=== PATIENT | female | born 1945 | race Two or more races ===

== ENCOUNTER 2022-06-04 10:57 | Emergency (ER) | payer OTHER, MEDICAID ==
[~2022-06-04] VITALS: Ht 162.6 cm; Wt 75.0 kg
[2022-06-04 11:35] LABS: Basophils # (auto) 0.1 10 ^3/uL (0-0.2); Basophils % (auto) 0.5 % (0.0-2.0); Eosinophils # (auto) 0.6 10 ^3/uL (0-0.8); Eosinophils % (auto) 5.6 % (0.0-7.0); Hemoglobin 13.1 g/dL (12.2-16.2); Lymphocytes # (auto) 2.1 10 ^3/uL (0.4-5.4); Lymphocytes % (auto) 19.7 % (10.0-50.0); Mean Corpuscular Hemoglobin 25.7 pg (28.0-32.0); Mean Corpuscular Volume 80.3 fL (80.0-100.0); Monocytes # (auto) 0.8 10 ^3/uL (0-1.3); Neutrophils # (auto) 7.2 10 ^3/uL (1.6-8.6); Neutrophils % (auto) 67.2 % (37.0-80.0); Red Blood Cells 5.11 10^6/uL (4.0-5.20); Red Cell Distribution Width 13.5 % (11.8-14.3); White Blood Cell 10.8 10^3/uL (4.4-10.8)
[2022-06-04 12:01] LABS: Albumin 3.2 g/dL (3.4-5.0); Calcium 9.3 mg/dL (8.5-10.1); Potassium 3.5 mmol/L (3.5-5.1)
[2022-06-04 12:04] LABS: BUN/Creatinine Ratio 16.1; Bilirubin, Total 0.3 mg/dL (0.2-1.0); Total Protein 7.1 g/dL (6.4-8.2)
[2022-06-04] MEDS ORDERED: DexAMETHasone SOD PHOS 10MG/1ML VIAL INJ IV ONE (17:15)
[2022-06-04 18:07] LABS: Urine Bacteria FEW /hpf (None Seen); Urine Blood Negative /uL (Negative); Urine Specific Gravity 1.029 (1.001-1.035); Urine WBC 5 /hpf (0 - 5)
[2022-06-04] MEDS ORDERED: CYCL-837 PO (18:36)
[2022-06-04] MEDS ORDERED: DEX4T PO (18:36)
[2022-06-04] MEDS ORDERED: TRAM50TA2 PO (18:36)
[2022-06-04] MEDS ORDERED: INSULIN LISPRO (HUMAN) 100 UNITS/ML ML SC ONE (18:45)
[2022-06-04 20:13] VITALS: BP 131/68
== END 2022-06-04 21:01 | disposition home or self-care (01) ==
LOC: EDBD 10:57 → ER 10:57
DX: M47.22 Other spondylosis with radiculopathy, cervical region (principal); G44.209 Tension-type headache, unspecified, not intractable; R07.89 Other chest pain; E11.65 Type 2 diabetes mellitus with hyperglycemia; E44.1 Mild protein-calorie malnutrition; Z68.28 Body mass index [BMI] 28.0-28.9, adult
CPT/HCPCS: 36415; 70450; 71045; 72125; 80053; 81001; 82962; 84484; 85025; 93005; 96372; 96374; 99285; J1100; J1815

== ENCOUNTER 2023-09-15 09:37 | Inpatient (IN) | payer OTHER ==
[~2023-09-15] VITALS: Ht 152.4 cm; Wt 52.4 kg
[~2023-09-15 09:37] MED LIST: CYCL-837 PO; DEX4T PO; TRAM50TA2 PO
[2023-09-15] MEDS: SODIUM CHLORIDE 0.9% 500 ML IV ONE (10:00)
[2023-09-15] MEDS: ASPirin-EC 325mg tab PO ONE (10:08)
[2023-09-15 10:11] LABS: Hematocrit 37.9 % (36.0-46.0); Hemoglobin 11.9 g/dL (12.2-16.2); Mean Corpuscular Hemoglobin 24.7 pg (28.0-32.0); Mean Corpuscular Hgb Conc. 31.4 g/dL (32.0-36.0); Mean Corpuscular Volume 78.9 fL (80.0-100.0)
[2023-09-15 10:17] LABS: White Blood Cell 39.6 10^3/uL (4.4-10.8)
[2023-09-15 10:20] LABS: Basophils % (manual) 0 (0.0-2.0); Blast Cells 0; Eosinophils % (manual) 0 (0-7); Myelocytes % 0; Promyelocytes % 0; Reactive Lymphocytes 0
[2023-09-15 10:25] LABS: Base Excess 0.3 mmol/L (-2.0-2.0)
[2023-09-15 10:27] LABS: INR 1.15 (0.9-1.15)
[2023-09-15 10:32] LABS: Alanine Aminotransferase 17 U/L (7-40); Albumin 2.9 g/dL (3.2-4.8); Alkaline Phosphatase 105 U/L (46-116); Anion Gap 8 (5-15); Aspartate Aminotransferase 19 U/L (13-40); Blood Urea Nitrogen 18 mg/dL (9-23); Calcium 8.1 mg/dL (8.7-10.4); Carbon Dioxide 24 mmol/L (20-30); Chloride 99 mmol/L (98-107); Lipase 18 U/L (12-53); Potassium 3.9 mmol/L (3.5-5.1); Sodium 131 mmol/L (136-145)
[2023-09-15 10:33] LABS: Bilirubin, Total 0.7 mg/dL (0.2-1.0)
[2023-09-15 10:47] LABS: Glucose 516 mg/dL (74-106)
[2023-09-15 11:00] VITALS: PULSE 76; RESP 12; O2SAT 93
[2023-09-15] MEDS: NITROGLYCERIN 2% OINT 1GM PKG TD ONE (11:07)
[2023-09-15] MEDS: SODIUM CHLORIDE 0.9% 1,950 ML IV ONE (12:00)
[2023-09-15 12:06] LABS: Band Neutrophils % (manual) 5; Lymphocytes % (manual) 3 (10.0-50.0); Metamyelocytes % 1; Monocytes % (manual) 1 (0-12); Toxic Granulation Slight
[2023-09-15 12:07] LABS: Platelet Estimate Adequate
[2023-09-15] MEDS: InsuLIN REG 1unit/0.01ml Soln (100units/ml) IV ONE (12:15)
[2023-09-15] MEDS ORDERED: ONDANSETRON HCL 4 MG/2 ML VIAL IV PRN (12:30)
[2023-09-15] MEDS ORDERED: NITROGLYCERIN 0.4 MG SL TAB SL PRN (12:30)
[2023-09-15] MEDS ORDERED: VANCOMYCIN PER PHARMACY 0 MG IV SCH (12:30)
[2023-09-15] MEDS ORDERED: MORPHINE SULFATE 4 MG/ML SYR/VIAL IV PRN (12:30)
[2023-09-15] MEDS ORDERED: PIPERACILLIN-TAZO 4.5GM 100 ML IV ONE (12:30)
[2023-09-15] MEDS ORDERED: CIPROFLOXACIN 400MG/200ML 200 ML IV ONE (12:30)
[2023-09-15] MEDS: IOHEXOL 350 MG/ML 100ML IJ ONE (12:34)
[2023-09-15] MEDS ORDERED: DEXTROSE (50%) 50ML SYRG IV PRN (12:45)
[2023-09-15] MEDS ORDERED: IPRATROPIUM BROM 0.5 MG/2.5ML INH SOL NEB PRN (12:45)
[2023-09-15] MEDS ORDERED: ALBUTEROL SULF 2.5 MG/0.5ML(0.5%) NEB SOLN NEB PRN (12:45)
[2023-09-15 13:09] LABS: Magnesium 1.4 mg/dL (1.6-2.6)
[2023-09-15 13:10] LABS: Phosphorus 3.1 mg/dL (2.4-5.1)
[2023-09-15 13:18] VITALS: BP 106/48; PULSE 76; RESP 20; O2SAT 92
[2023-09-15] MEDS: VANCOMYCIN 1GM/200ML 200 ML IV ONE (14:11)
[2023-09-15] MEDS: ENOXAPARIN SOD 100 MG/1 ML SYRINGE SC ONE (14:12)
[2023-09-15 14:37] LABS: Rapid Influenza A Negative (Negative); Rapid Influenza B Negative (Negative)
[2023-09-15 14:39] LABS: COVID19 ANTIGEN SOFIA FIA NEGATIVE (NEGATIVE)
[2023-09-15 15:04] LABS: Sodium Urine < 10 mmol/L (40-220)
[2023-09-15 15:11] LABS: Creatinine, Urine 58.22 mg/dL (30.0-125.0)
[2023-09-15] MEDS: CEFEPIME 2GM/50ML NS 50 ML IV SCH (15:12)
[2023-09-15 15:21] LABS: Urine Bacteria FEW /hpf (None Seen); Urine Blood Negative /uL (Negative); Urine Clarity Clear (Clear); Urine Color Yellow (Yellow); Urine Protein, UAD Negative (Negative); Urine Specific Gravity 1.044 (1.001-1.035); Urine Urobilinogen Normal (Negative); Urine WBC 2 /hpf (0 - 5)
[2023-09-15] MEDS: ACCU-CHEK COMFORT CURVE STRIP VI SCH (16:07)
[2023-09-15] MEDS: InsuLIN REG 1unit/0.01ml Soln (100units/ml) SC SCH (16:12)
[2023-09-15 18:32] VITALS: O2SAT 93
[2023-09-15 19:40] VITALS: PULSE 82; RESP 14; O2SAT 96
[2023-09-15] MEDS: SODIUM CHLORIDE 0.9% 1,000 ML IV SCH (20:00)
[2023-09-15] MEDS: ATORVASTATIN 20 MG TAB PO SCH (21:43)
[2023-09-15] MEDS: ACETAMINOPHEN 325 MG TAB PO PRN (21:43)
[2023-09-16] VITALS (10 sets, daily range): BP systolic 109–126; BP diastolic 45–63; PULSE 67–74; RESP 15–20; TEMP 97.8–98.4; O2SAT 92–100
[2023-09-16] MEDS ORDERED: AMLO1TAB22 PO (00:19)
[2023-09-16] MEDS ORDERED: TIRZ10IN SC (00:19)
[2023-09-16] MEDS ORDERED: ATOR20TA50 PO (00:19)
[2023-09-16] MEDS ORDERED: ENAL1TAB47 PO (00:19)
[2023-09-16] MEDS ORDERED: ASPI-325 PO (00:19)
[2023-09-16] MEDS ORDERED: MONT-8 PO (00:19)
[2023-09-16] MEDS ORDERED: IBUP1TAB5 PO (00:19)
[2023-09-16] MEDS ORDERED: AMOX875T4 PO (00:19)
[2023-09-16] MEDS ORDERED: CHOL500035 PO (00:19)
[2023-09-16 07:21] LABS: Basophils # (auto) 0.1 10 ^3/uL (0-0.2); Eosinophils # (auto) 0.1 10 ^3/uL (0-0.8); Lymphocytes # (auto) 2.7 10 ^3/uL (0.4-5.4); Monocytes # (auto) 1.5 10 ^3/uL (0-1.3)
[2023-09-16 07:25] LABS: Basophils % (auto) 0.4 % (0.0-2.0); Eosinophils % (auto) 0.4 % (0.0-7.0); Hematocrit 31.7 % (36.0-46.0); Lymphocytes % (auto) 11.9 % (10.0-50.0); Mean Corpuscular Hemoglobin 24.9 pg (28.0-32.0); Mean Corpuscular Hgb Conc. 31.6 g/dL (32.0-36.0); Mean Corpuscular Volume 78.8 fL (80.0-100.0); Monocytes % (auto) 6.5 % (0.0-12.0); Neutrophils # (auto) 18.7 10 ^3/uL (1.6-8.6); Neutrophils % (auto) 80.8 % (37.0-80.0); Red Blood Cells 4.02 10^6/uL (4.0-5.20); Red Cell Distribution Width 15.1 % (11.8-14.3); White Blood Cell 23.2 10^3/uL (4.4-10.8)
[2023-09-16 07:43] LABS: Alanine Aminotransferase 12 U/L (7-40); Alkaline Phosphatase 78 U/L (46-116); Calcium 7.8 mg/dL (8.5-10.1); Carbon Dioxide 21 mmol/L (20-30); Triglycerides 101 mg/dL (< 150)
[2023-09-16 07:44] LABS: Albumin 2.5 g/dL (3.2-4.8); Anion Gap 8 (5-15); Aspartate Aminotransferase 15 U/L (13-40); BUN/Creatinine Ratio 15.1 (10.0-20.0); Bilirubin, Total 0.3 mg/dL (0.2-1.0); Blood Urea Nitrogen 13 mg/dL (9-23); Cholesterol 100 mg/dL (< 200); Glucose 149 mg/dL (74-106); HDL Cholesterol 21 mg/dL (40-59); LDL Cholesterol 54 mg/dL (< 100); Potassium 2.6 mmol/L (3.5-5.1); Sodium 138 mmol/L (136-145); Total Protein 5.9 g/dL (5.7-8.2)
[2023-09-16 07:53] LABS: Chloride 109 mmol/L (98-107)
[2023-09-16] MEDS: DOCUSATE SOD 100 MG CAP PO SCH (09:43)
[2023-09-16] MEDS: POTASSIUM CHL 20 Meq TABLET PO ONE (09:43)
[2023-09-16] MEDS: ASPirin 81 mg TAB PO SCH (09:43)
[2023-09-16] MEDS: ENOXAPARIN SOD 40 MG/0.4 ML SYRINGE SC SCH (09:44)
[2023-09-16] MEDS: VANCOMYCIN 750mg/150ml 150 ML IV SCH (10:18)
[2023-09-16] MEDS: MAGNESIUM SULFATE 1GM/100ML 100 ML IV SCH (12:09)
[2023-09-16] MEDS: POTASSIUM CHL 20MEQ/100ML 100 ML IV SCH (12:28)
[2023-09-16 19:23] LABS: Potassium 3.1 mmol/L (3.5-5.1)
[2023-09-17] VITALS (8 sets, daily range): BP systolic 114–145; BP diastolic 41–61; PULSE 68–89; RESP 15–19; TEMP 97.5–98.4; O2SAT 94–98
[2023-09-17 10:13] LABS: Basophils # (auto) 0 10 ^3/uL (0-0.2); Lymphocytes # (auto) 1.6 10 ^3/uL (0.4-5.4); Mean Corpuscular Hgb Conc. 31.8 g/dL (32.0-36.0); Monocytes # (auto) 0.8 10 ^3/uL (0-1.3); Neutrophils # (auto) 10.3 10 ^3/uL (1.6-8.6); Red Cell Distribution Width 15.3 % (11.8-14.3); White Blood Cell 12.8 10^3/uL (4.4-10.8)
[2023-09-17 10:15] LABS: Basophils % (auto) 0.4 % (0.0-2.0); Eosinophils # (auto) 0 10 ^3/uL (0-0.8); Eosinophils % (auto) 0.3 % (0.0-7.0); Hematocrit 36.8 % (36.0-46.0); Hemoglobin 11.7 g/dL (12.2-16.2); Lymphocytes % (auto) 12.8 % (10.0-50.0); Mean Corpuscular Hemoglobin 25.5 pg (28.0-32.0); Mean Corpuscular Volume 80.1 fL (80.0-100.0); Monocytes % (auto) 5.9 % (0.0-12.0); Neutrophils % (auto) 80.6 % (37.0-80.0); Red Blood Cells 4.59 10^6/uL (4.0-5.20)
[2023-09-17 10:31] LABS: Chloride 111 mmol/L (98-107); Potassium 3.3 mmol/L (3.5-5.1); Sodium 139 mmol/L (136-145)
[2023-09-17 10:32] LABS: Anion Gap 12 (5-15); Carbon Dioxide 16 mmol/L (20-30)
[2023-09-17 10:37] LABS: BUN/Creatinine Ratio 9.7 (10.0-20.0); Blood Urea Nitrogen 7 mg/dL (9-23); Glucose 164 mg/dL (74-106)
[2023-09-17 10:38] LABS: Magnesium 1.9 mg/dL (1.6-2.6)
[2023-09-17] MEDS: NYSTATIN (MOUTH-THROAT) 500,000 UNITS/5 ML SUSP MT SCH (12:23)
[2023-09-17] MEDS: CEFTRIAXONE SODIUM 2 GM in D5W 5% 100 ML IV ONE (12:27)
[2023-09-17] MEDS: IOHEXOL 300 MG/ML 100ML BOTTLE IJ ONE (16:21)
[2023-09-17] MEDS: OMNIPAQUE 12mg/ml 500ml ORAL SOLUTION PO ONE (16:21)
[2023-09-17] MEDS: VANCOMYCIN 1GM/200ML 200 ML IV SCH (21:09)
[2023-09-17] MEDS: ALPRAZolam 0.25 MG TAB PO PRN (23:05)
[2023-09-18] VITALS (8 sets, daily range): BP systolic 129–146; BP diastolic 68–76; PULSE 66–78; RESP 14–20; TEMP 97.3–98.2; O2SAT 91–97
[2023-09-18 05:24] LABS: Basophils # (auto) 0.1 10 ^3/uL (0-0.2); Basophils % (auto) 0.7 % (0.0-2.0); Eosinophils # (auto) 0.1 10 ^3/uL (0-0.8); Eosinophils % (auto) 1.1 % (0.0-7.0); Hematocrit 31.9 % (36.0-46.0); Hemoglobin 10.5 g/dL (12.2-16.2); Lymphocytes # (auto) 2.5 10 ^3/uL (0.4-5.4); Lymphocytes % (auto) 26.3 % (10.0-50.0); Mean Corpuscular Hemoglobin 25.4 pg (28.0-32.0); Mean Corpuscular Hgb Conc. 32.8 g/dL (32.0-36.0); Mean Corpuscular Volume 77.5 fL (80.0-100.0); Monocytes # (auto) 0.8 10 ^3/uL (0-1.3); Monocytes % (auto) 8.9 % (0.0-12.0); Neutrophils # (auto) 5.9 10 ^3/uL (1.6-8.6); Nucleated Red Blood Cells % 0.1 %; Red Blood Cells 4.12 10^6/uL (4.0-5.20); Red Cell Distribution Width 15.1 % (11.8-14.3); White Blood Cell 9.4 10^3/uL (4.4-10.8)
[2023-09-18 05:32] LABS: Chloride 111 mmol/L (98-107); Potassium 3.1 mmol/L (3.5-5.1); Sodium 139 mmol/L (136-145)
[2023-09-18 05:33] LABS: Anion Gap 9 (5-15); Calcium 8.2 mg/dL (8.5-10.1); Carbon Dioxide 19 mmol/L (20-30)
[2023-09-18 05:38] LABS: Blood Urea Nitrogen 6 mg/dL (9-23); Glucose 134 mg/dL (74-106)
[2023-09-18 06:21] LABS: Free T4 (Free Thyroxine) 1.11 ng/dL (0.89-1.76)
[2023-09-18 06:22] LABS: Folate (Folic Acid) 13.86 ng/mL (>5.38)
[2023-09-18] MEDS: CEFTRIAXONE SODIUM 2 GM in D5W 5% 100 ML IV SCH (08:36)
[2023-09-18] MEDS: POTASSIUM CHL 20 Meq TABLET PO ONE (09:42)
[2023-09-18] MEDS: IOHEXOL 300 MG/ML 100ML BOTTLE IJ ONE (10:46)
[2023-09-18] MEDS: TEMAZEPAM 15 MG CAP PO PRN (21:43)
[2023-09-19] VITALS (8 sets, daily range): BP systolic 141–155; BP diastolic 62–74; PULSE 68–77; RESP 18–20; TEMP 97.7–98.6; O2SAT 96–100
[2023-09-19 09:12] LABS: Basophils # (auto) 0.1 10 ^3/uL (0-0.2); Eosinophils # (auto) 0.1 10 ^3/uL (0-0.8); Neutrophils # (auto) 5.3 10 ^3/uL (1.6-8.6)
[2023-09-19 09:15] LABS: Basophils % (auto) 1.1 % (0.0-2.0); Hemoglobin 12.3 g/dL (12.2-16.2); Lymphocytes % (auto) 24.2 % (10.0-50.0); Mean Corpuscular Hemoglobin 24.9 pg (28.0-32.0); Mean Corpuscular Hgb Conc. 30.8 g/dL (32.0-36.0); Monocytes # (auto) 0.9 10 ^3/uL (0-1.3); Monocytes % (auto) 10.2 % (0.0-12.0); Neutrophils % (auto) 63.5 % (37.0-80.0); Nucleated Red Blood Cells % 0.1 %; Red Blood Cells 4.93 10^6/uL (4.0-5.20); Red Cell Distribution Width 15.7 % (11.8-14.3); White Blood Cell 8.4 10^3/uL (4.4-10.8)
[2023-09-19 09:18] LABS: Anion Gap 8 (5-15); Calcium 8.4 mg/dL (8.7-10.4); Carbon Dioxide 18 mmol/L (20-30); Chloride 109 mmol/L (98-107); Potassium 3.6 mmol/L (3.5-5.1); Sodium 135 mmol/L (136-145)
[2023-09-19 09:23] LABS: Glucose 171 mg/dL (74-106)
[2023-09-19 09:25] LABS: BUN/Creatinine Ratio 7.4 (10.0-20.0); Blood Urea Nitrogen < 5 mg/dL (9-23); Magnesium 1.8 mg/dL (1.6-2.6)
[2023-09-19] MEDS ORDERED: IBAN1TAB2 PO (11:14)
[2023-09-19] MEDS ORDERED: FLUT50SP28 EACHNOSTRI (11:14)
[2023-09-19] MEDS ORDERED: HYDR25TA4 PO (11:14)
[2023-09-19] MEDS ORDERED: CHOLTAB12 PO (11:17)
[2023-09-19] MEDS ORDERED: GENTAMICIN OPTH sol 0.3% 5ml LEFTEYE ONE (15:00)
[2023-09-19] MEDS: GENTAMICIN OPTH sol 0.3% 5ml RIGHTEYE ONE (16:25)
[2023-09-19] MEDS: GENTAMICIN OPTH sol 0.3% 5ml RIGHTEYE SCH (17:42)
[2023-09-20 05:00] VITALS: BP 144/72; PULSE 70; RESP 18; TEMP 98; O2SAT 94
[2023-09-20 07:16] LABS: Basophils # (auto) 0.1 10 ^3/uL (0-0.2); Basophils % (auto) 0.7 % (0.0-2.0); Eosinophils # (auto) 0.1 10 ^3/uL (0-0.8); Hemoglobin 11.1 g/dL (12.2-16.2); Neutrophils # (auto) 4.8 10 ^3/uL (1.6-8.6); Red Blood Cells 4.33 10^6/uL (4.0-5.20); Red Cell Distribution Width 15.1 % (11.8-14.3)
[2023-09-20 07:18] LABS: Lymphocytes # (auto) 2.6 10 ^3/uL (0.4-5.4); Lymphocytes % (auto) 30.4 % (10.0-50.0); Mean Corpuscular Hemoglobin 25.6 pg (28.0-32.0); Mean Corpuscular Hgb Conc. 32.6 g/dL (32.0-36.0); Mean Corpuscular Volume 78.5 fL (80.0-100.0); Monocytes # (auto) 1.1 10 ^3/uL (0-1.3); Monocytes % (auto) 12.5 % (0.0-12.0); Neutrophils % (auto) 55.4 % (37.0-80.0); White Blood Cell 8.6 10^3/uL (4.4-10.8)
[2023-09-20 07:26] LABS: Alanine Aminotransferase 13 U/L (7-40); Albumin 2.8 g/dL (3.2-4.8); Alkaline Phosphatase 83 U/L (46-116); Anion Gap 8 (5-15); Aspartate Aminotransferase 19 U/L (13-40); BUN/Creatinine Ratio 7.6 (10.0-20.0); Blood Urea Nitrogen 5 mg/dL (9-23); Calcium 8.3 mg/dL (8.7-10.4); Carbon Dioxide 21 mmol/L (20-30); Chloride 109 mmol/L (98-107); Glucose 132 mg/dL (74-106); Magnesium 1.6 mg/dL (1.6-2.6); Potassium 3.1 mmol/L (3.5-5.1); Sodium 138 mmol/L (136-145)
[2023-09-20 07:27] LABS: Bilirubin, Total 0.4 mg/dL (0.2-1.0); Total Protein 6.7 g/dL (5.7-8.2)
[2023-09-20 10:00] VITALS: O2SAT 96
[2023-09-20 10:24] VITALS: BP 113/66; PULSE 93; RESP 18; TEMP 97.5; O2SAT 96
[2023-09-20] MEDS: POTASSIUM CHL 20 Meq TABLET PO ONE (11:49)
[2023-09-20] MEDS: amLODIPine BESYLATE 5 MG TAB PO SCH (11:50)
[2023-09-20 13:06] VITALS: BP 108/53; PULSE 75; RESP 18; TEMP 97.6; O2SAT 96
[2023-09-20 20:00] VITALS: RESP 20
[2023-09-20 22:00] VITALS: BP 144/77; PULSE 81; RESP 17; TEMP 98.3; O2SAT 96
[2023-09-21] VITALS (8 sets, daily range): BP systolic 108–140; BP diastolic 57–73; PULSE 78–98; RESP 16–17; TEMP 97.4–98.4; O2SAT 93–98
[2023-09-22] VITALS (8 sets, daily range): BP systolic 119–158; BP diastolic 51–79; PULSE 75–87; RESP 16–20; TEMP 97.5–98.2; O2SAT 92–97
[2023-09-22 06:08] LABS: Basophils # (auto) 0.1 10 ^3/uL (0-0.2); Eosinophils # (auto) 0.1 10 ^3/uL (0-0.8); Lymphocytes # (auto) 2.7 10 ^3/uL (0.4-5.4); Lymphocytes % (auto) 26.8 % (10.0-50.0); Monocytes # (auto) 1.2 10 ^3/uL (0-1.3)
[2023-09-22 06:11] LABS: Basophils % (auto) 0.5 % (0.0-2.0); Eosinophils % (auto) 1.3 % (0.0-7.0); Hematocrit 32.6 % (36.0-46.0); Hemoglobin 10.7 g/dL (12.2-16.2); Mean Corpuscular Hemoglobin 25.6 pg (28.0-32.0); Mean Corpuscular Hgb Conc. 32.9 g/dL (32.0-36.0); Mean Corpuscular Volume 77.9 fL (80.0-100.0); Monocytes % (auto) 11.5 % (0.0-12.0); Neutrophils % (auto) 59.9 % (37.0-80.0); Red Blood Cells 4.18 10^6/uL (4.0-5.20); Red Cell Distribution Width 15.1 % (11.8-14.3)
[2023-09-22 06:39] LABS: Anion Gap 5 (5-15); Carbon Dioxide 22 mmol/L (20-30); Chloride 109 mmol/L (98-107); Potassium 3.9 mmol/L (3.5-5.1); Sodium 136 mmol/L (136-145)
[2023-09-22 06:40] LABS: Calcium 8.7 mg/dL (8.7-10.4)
[2023-09-22 06:44] LABS: Glucose 139 mg/dL (74-106)
[2023-09-22 06:45] LABS: BUN/Creatinine Ratio 13.3 (10.0-20.0); Blood Urea Nitrogen 10 mg/dL (9-23)
[2023-09-23] VITALS (9 sets, daily range): BP systolic 106–146; BP diastolic 48–75; PULSE 67–88; RESP 16–20; TEMP 97.7–98.3; O2SAT 92–97
[2023-09-24] VITALS (12 sets, daily range): BP systolic 119–169; BP diastolic 54–98; PULSE 66–100; RESP 15–24; TEMP 97.8–98.1; O2SAT 93–98
[2023-09-24 07:47] LABS: INR 1.05 (0.9-1.15); Partial Thromboplastin Time 27.6 SEC (24.5-34.5)
[2023-09-24] MEDS: fentaNYL CITRATE 100 MCG/2 ML VL IV ONE (08:53)
[2023-09-24] MEDS: LIDOCAINE VISCOUS 2% 15ML UD PO ONE (08:53)
[2023-09-24] MEDS: MIDAZOLAM HCL 2MG/2ML 2ml VIAL (1mg/ml) IV ONE (08:53)
[2023-09-25] VITALS (7 sets, daily range): BP systolic 103–145; BP diastolic 41–65; PULSE 79–94; RESP 17–20; TEMP 97.9–98.3; O2SAT 94–97
[2023-09-25 09:47] LABS: Basophils # (auto) 0 10 ^3/uL (0-0.2); Basophils % (auto) 0.4 % (0.0-2.0); Eosinophils # (auto) 0.1 10 ^3/uL (0-0.8); Hematocrit 35.4 % (36.0-46.0); Hemoglobin 11.2 g/dL (12.2-16.2); Lymphocytes # (auto) 2.1 10 ^3/uL (0.4-5.4); Lymphocytes % (auto) 19.9 % (10.0-50.0); Mean Corpuscular Hemoglobin 25.1 pg (28.0-32.0); Mean Corpuscular Hgb Conc. 31.7 g/dL (32.0-36.0); Mean Corpuscular Volume 79.1 fL (80.0-100.0); Monocytes # (auto) 0.8 10 ^3/uL (0-1.3); Monocytes % (auto) 7.4 % (0.0-12.0); Neutrophils # (auto) 7.5 10 ^3/uL (1.6-8.6); Neutrophils % (auto) 71.3 % (37.0-80.0); Red Blood Cells 4.48 10^6/uL (4.0-5.20); Red Cell Distribution Width 14.8 % (11.8-14.3); White Blood Cell 10.6 10^3/uL (4.4-10.8)
[2023-09-25 10:00] LABS: Chloride 104 mmol/L (98-107); Potassium 3.5 mmol/L (3.5-5.1); Sodium 136 mmol/L (136-145)
[2023-09-25 10:01] LABS: Anion Gap 5 (5-15); Carbon Dioxide 27 mmol/L (20-30)
[2023-09-25 10:02] LABS: Calcium 9.2 mg/dL (8.5-10.1)
[2023-09-25 10:06] LABS: BUN/Creatinine Ratio 12.5 (10.0-20.0); Blood Urea Nitrogen 11 mg/dL (9-23); Glucose 168 mg/dL (74-106)
[2023-09-25] MEDS: LIDOCAINE 1% (LOCAL ANESTH.) PF 5ml SDV ID ONE (13:10)
[2023-09-25 18:33] LABS: Chloride 105 mmol/L (98-107); Potassium 3.7 mmol/L (3.5-5.1); Sodium 136 mmol/L (136-145)
[2023-09-25 18:34] LABS: Anion Gap 5 (5-15); Calcium 8.9 mg/dL (8.7-10.4); Carbon Dioxide 26 mmol/L (20-30)
[2023-09-25 18:39] LABS: Blood Urea Nitrogen 15 mg/dL (9-23); Glucose 177 mg/dL (74-106)
[2023-09-25] MEDS: SODIUM CHLOR 0.9% PF (SALINE LOCK) 10ML VIAL/SYR IV SCH (21:28)
[2023-09-25] MEDS ORDERED: LORazepam 2MG/ML-1ML VIAL IV PRN (23:00)
[2023-09-26 04:00] VITALS: BP 145/77; PULSE 83; O2SAT 94
[2023-09-26 04:41] VITALS: BP 145/77; PULSE 93; RESP 18; TEMP 98.2; O2SAT 94
[2023-09-26 08:58] VITALS: BP 150/79; PULSE 97; RESP 20; TEMP 98; O2SAT 97
[2023-09-26] MEDS: cefTRIAXone 2GM/50ML D5W 50 ML IV SCH (09:49)
[2023-09-26 10:00] VITALS: O2SAT 95
[2023-09-26 14:17] VITALS: BP 150/79; TEMP 36.7
== END 2023-09-26 15:10 | disposition home health service (06) | DRG 871 ==
LOC: ER 09:37 → EDBD 09:37 → TELE-CENTR 12:27 → TELE 12:27 → TELE-CENTR 22:43 → CENTRAL 09-19 11:49
PROVIDERS: ADMIT Internal Medicine Geriatric Medicine; ATTEND Internal Medicine Geriatric Medicine
PROC: B246ZZ4 Ultrasonography of Right and Left Heart, Transesophageal (ICD-10-PCS; 2023-09-24)
PROC: 02HV33Z Insertion of Infusion Device into Superior Vena Cava, Percutaneous Approach (ICD-10-PCS; principal; 2023-09-25)
PROC: B548ZZA Ultrasonography of Superior Vena Cava, Guidance (ICD-10-PCS; 2023-09-25)
DX: A40.3 Sepsis due to Streptococcus pneumoniae (principal); E11.10 Type 2 diabetes mellitus with ketoacidosis without coma; G93.41 Metabolic encephalopathy; I21.A1 Myocardial infarction type 2; J15.9 Unspecified bacterial pneumonia; J96.01 Acute respiratory failure with hypoxia; I33.0 Acute and subacute infective endocarditis; E44.0 Moderate protein-calorie malnutrition; E87.3 Alkalosis; B37.0 Candidal stomatitis; N17.9 Acute kidney failure, unspecified; E87.1 Hypo-osmolality and hyponatremia; Z20.822 Contact with and (suspected) exposure to COVID-19; D50.9 Iron deficiency anemia, unspecified; E86.0 Dehydration; E87.6 Hypokalemia; J01.90 Acute sinusitis, unspecified; J20.9 Acute bronchitis, unspecified; H01.009 Unspecified blepharitis unspecified eye, unspecified eyelid; R56.9 Unspecified convulsions; F02.80 Dementia in other diseases classified elsewhere, unspecified severity, without behavioral disturbance, psychotic disturbance, mood disturbance, and anxiety; G30.9 Alzheimer's disease, unspecified; Z68.22 Body mass index [BMI] 22.0-22.9, adult; I50.9 Heart failure, unspecified; E86.1 Hypovolemia; F17.200 Nicotine dependence, unspecified, uncomplicated; H10.9 Unspecified conjunctivitis; Z86.73 Personal history of transient ischemic attack (TIA), and cerebral infarction without residual deficits; Z82.3 Family history of stroke; Z82.49 Family history of ischemic heart disease and other diseases of the circulatory system; Z82.5 Family history of asthma and other chronic lower respiratory diseases; Z83.3 Family history of diabetes mellitus; Z90.710 Acquired absence of both cervix and uterus
CPT/HCPCS: 36415; 36569; 36600; 70450; 70551; 71045; 71275; 74177; 80048; 80053; 80061; 80202; 81001; 82010; 82570; 82607; 82746; 82805; 82962; 83036; 83605; 83690; 83735; 83880; 84100; 84132; 84300; 84439; 84443; 84484; 85007; 85025; 85027; 85379; 85610; 85730; 86850; 86900; 86901; 87040; 87077; 87081; 87186; 87278; 87426; 87804; 92610; 93005; 93306; 93318; 93886; 95819; 97110; 97116; 97163; 97530; 99152; G0378; J0692; J0696; J1815; J2250; J3480; J7060